=== PATIENT | female | born 1990 | race American Indian/Alaskan Native ===

== ENCOUNTER 2016-09-28 12:50 | Emergency (ER) | payer OTHER ==
--- NOTE | 2016-09-28 13:14 | Emergency Department Report ---
Entered by YEVGENIY OCONNOR, acting as scribe for HUEY RICHARDSON PA. Chief Complaint: Urogenital-Female Stated Complaint: ABD PAIN Time Seen by Provider: 09/28/16 13:03 - HPI History of Present Illness: Patient presents to the ED c/o vaginal discharge, pelvic pain, and dysuria that began 2 days ago. Rates pelvic pain a 10/10 in severity. Denies fever, chills, nausea, and vomiting. LMP 09/28/2016. - ROS Review of Systems: All system are negative unless stated in HPI above. - Exam Vital Signs: Vital Signs 09/28/16 12:55 Temperature 98.4 F Pulse Rate 89 Respiratory 20 Rate Blood Pressure 104/67 O2 Sat by Pulse 100 Oximetry Physical Exam: General: well nourished, well developed, nontoxic in appearance, in no acute distress Back: no CVA tenderness Abdomen: TTP on pelvic area MSE screening note: Focused history and physical exam performed. Due to findings the following was ordered: ED Medical Decision Making - Medical Decision Making Medical decision making: Patient seen by provider in triage area. Appropriate protocol activated and patient to main ED to be seen by provider ED Disposition for MSE Condition: Stable This documentation as recorded by the scribeANASTASIA JASMINE,accurately reflects the service I personally performed and the decisions made by me,HUEY RICHARDSON PA.
[2016-09-28 13:55] LABS: Bilirubin,Urine NEG (Negative); Blood,Urine LG (Negative); Ketones,Urine NEG (Negative); Leukocyte Esterase,Urine LG (Negative); Mucus,Urine FEW /HPF; Nitrite,Urine NEG (Negative); Urobilinogen,Urine < 2.0 mg/dL (<2.0)
[2016-09-28 13:56] LABS: RBC,Urine > 182.0 /HPF (0.0-6.0)
[2016-09-28 13:57] LABS: Hematocrit 34.4 % (30.3-42.9); Hemoglobin 11.1 gm/dl (10.1-14.3); Mean Corpuscular HGB Conc 32 % (30-34); Mean Corpuscular Volume 79 fl (79-97); Platelet Count 252 K/mm3 (140-440); Red Blood Count 4.37 M/mm3 (3.65-5.03); Red Cell Distribution Width 17.1 % (13.2-15.2)
[2016-09-28 13:58] LABS: Mean Corpuscular Hemoglobin 25 pg (28-32)
[2016-09-28 14:17] LABS: Alanine Aminotransferase 8 units/L (7-56); Albumin 3.6 g/dL (3.9-5); Alkaline Phosphatase 85 units/L (35-129); Anion Gap 16 mmol/L; BUN/Creatinine Ratio 11.66; Bilirubin,Total 0.8 mg/dL (0.1-1.2); Blood Urea Nitrogen 7 mg/dL (7-17); Calcium 8.7 mg/dL (8.4-10.2); Carbon Dioxide 23 mmol/L (22-30); Chloride 102.6 mmol/L (98-107); Glucose 87 mg/dL (65-100); Lipase 57 units/L (13-60); Potassium 3.7 mmol/L (3.6-5.0); Sodium 138 mmol/L (137-145); Total Protein 7.2 g/dL (6.3-8.2)
[2016-09-28 14:33] LABS: Basophils % (Manual) 0 % (0.0-1.8); Blastocytes % (Manual) 0 %; Hypochromasia 1+
[2016-09-28 14:34] LABS: Platelet Estimate Consistent w Auto
[2016-09-28 14:35] LABS: Diff Status Complete
[2016-09-28] MEDS ORDERED: ROCEPHIN IM ONE (17:12)
[2016-09-28] MEDS ORDERED: ZITHROMAX PO ONE (17:12)
[2016-09-28] MEDS ORDERED: FLAGYL PO ONE (17:12)
[2016-09-28] MEDS ORDERED: XYLOCAINE 1% MPF 5 mL INFILTRATI ONE (17:12)
[2016-09-28] MEDS ORDERED: TYLENOL PO ONE (17:13)
--- NOTE | 2016-09-28 17:45 | Emergency Department Report ---
HPI - General Chief Complaint: Urogenital-Female Time Seen by Provider: 09/28/16 16:11 - HPI HPI: The patient is a 26-year-old female who presents for evaluation of abdominal pain. The patient reports 2 days of abdominal pain, cramping in quality, suprapubic in location, 10/10 in severity, and associated with dysuria. The patient denies fever, chills, night sweats, diarrhea, blood in the stool, dark tarry stool, hematuria, flank pain, genital discharge, inability to pass flatus. ED Past Medical Hx - Past Medical History Previous Medical History?: No - Surgical History Past Surgical History?: No - Social History Smoking Status: Never Smoker Substance Use Type: None - Medications Home Medications: Home Medications Medication Instructions Recorded Confirmed Last Taken Type Acetaminophen [Acetaminophen TAB] 325 mg PO Q4H PRN 09/28/16 09/28/16 09/27/16 History 325 Acetaminophen/Codeine [Tylenol #3] 1 tab PO Q6H PRN #10 tab 09/28/16 Unknown Rx Cephalexin [Keflex] 500 mg PO QID #20 capsule 09/28/16 Unknown Rx Ibuprofen [Motrin] 800 mg PO Q8HR PRN #15 tablet 09/28/16 Unknown Rx ED Review of Systems ROS: Stated complaint: ABD PAIN Other details as noted in HPI Constitutional: denies: fever ENT: denies: throat or neck pain Respiratory: denies: cough, shortness of breath Cardiovascular: denies: chest pain Endocrine: denies unexplained weight loss or gain Gastrointestinal: reports abdominal pain, nausea Genitourinary: reports dysuria Musculoskeletal: denies: leg swelling Skin: denies: rash Neurological: denies: headache Hematological/Lymphatic: denies: easy bleeding or easy bruising Psych: denies sadness or hopelessness Physical Exam - Physical Exam Vital Signs: Vital Signs 09/28/16 12:55 Temperature 98.4 F Pulse Rate 89 Respiratory 20 Rate Blood Pressure 104/67 O2 Sat by Pulse 100 Oximetry Physical Exam: General: well-nourished, well-developed, no acute distress Head: Normocephalic, atraumatic Eyes: normal sclera ENT: Mucous membranes are pink and moist Neck: trachea midline, neck supple, No neck stiffness, no cervical adenopathy Respiratory: Breath sounds equal bilaterally, no wheezing, rales, or rhonchi Cardio: S1 and S2 present, no murmurs, rubs, gallops, capillary refill is brisk Abdomen: Normoactive bowel sounds, soft abdomen, suprapubic abd pain, no rigidity, no guarding or rebound tenderness Musc: No pitting edema Skin: No rash Neuro: no facial drooping, normal speech Psych: Normal affect ED Course Vital Signs 09/28/16 12:55 Temperature 98.4 F Pulse Rate 89 Respiratory 20 Rate Blood Pressure 104/67 O2 Sat by Pulse 100 Oximetry ED Medical Decision Making - Lab Data Result diagrams: 09/28/16 13:24 09/28/16 13:24 - Medical Decision Making The patient was seen and examined by myself. The patient is placed on a property assessment monitor and continuous pulse ox. On initial evaluation, the patient was found to be in no distress. Evaluation orders are placed. The patient is given a tablet of Tylenol for her pain. Lab results revealed elevated urine WBC with positive leukocyte esterase, consistent with UTI, and otherwise labs were non-concerning including WBC, hemoglobin, hematocrit, electrolytes, renal function, LFTs, lipase, and negative preg test. The patient is given IM Rocephin and a prescription for Keflex for treatment of UTI. The patient requests treatment for potential STDs. The patient given 1 g of azithromycin and 2 g of Flagyl for treatment of STDs. The patient was reevaluated and reported that their symptoms were markedly improved. The patient is stable for discharge with outpatient follow-up. The patient is given follow-up and return instructions. The patient expressed understanding and agreed with the plan. The patient is discharged in stable condition. Critical care attestation.: If time is entered above; I have spent that time in minutes in the direct care of this critically ill patient, excluding procedure time. ED Disposition Clinical Impression: Acute UTI (urinary tract infection), Acute bilateral lower abdominal pain, Suprapubic abdominal pain Vaginitis Qualifiers: Chronicity: acute Qualified Code(s): N76.0 - Acute vaginitis Disposition: DISCHARGED TO HOME OR SELFCARE Is pt being admited?: No Does the pt Need Aspirin: No Condition: Stable Instructions: Urinary Tract Infection in Women (ED), Cervicitis (ED) Prescriptions: Acetaminophen/Codeine [Tylenol #3] 1 tab PO Q6H PRN #10 tab PRN Reason: Pain Cephalexin [Keflex] 500 mg PO QID #20 capsule Ibuprofen [Motrin] 800 mg PO Q8HR PRN #15 tablet PRN Reason: Pain Referrals: PRIMARY CARE, [Primary Care Provider] - 3-5 Days Time of Disposition: 17:01
[2016-09-28 17:48] VITALS: BP 111/72
== END 2016-09-28 18:08 | disposition home or self-care (01) ==
LOC: ED 12:50
DX: N39.0 Urinary tract infection, site not specified (principal); N76.0 Acute vaginitis; R10.31 Right lower quadrant pain; R10.32 Left lower quadrant pain
CPT/HCPCS: 36415; 80053; 81001; 83690; 84703; 85007; 85025; 96372; 99284; J0696